=== PATIENT | female | born 1975 | race Hispanic/Latino ===

== ENCOUNTER → 2017-05-14 | Outpatient (CLI) | payer OTHER | LOC: MAMMO 15:04 | PROVIDERS: ATTEND Obstetrics & Gynecology | DX: Z12.31 Encounter for screening mammogram for malignant neoplasm of breast (principal) | CPT/HCPCS: 77067 ==

== ENCOUNTER → 2017-06-06 | Outpatient (CLI) | payer OTHER ==
--- NOTE | 2017-06-06 16:32 | Diagnostic Imaging Report ---
#[id number] - MGDXRT #UNILATERAL RIGHT DIGITAL DIAGNOSTIC MAMMOGRAM WITH SPOT COMPRESSION: 06/06/2017 Comparison is made to exam dated: 05/14/2017 mammogram - [facility]. Current study contains 4 films. The tissue of the right breast is heterogeneously dense. This may lower the sensitivity of mammography. There is a 2.8 cm mass with a spiculated margin and fine calcifications in the right breast at 11 o'clock posterior depth. There also is a 1.9 cm mass with a spiculated margin and fine calcifications in the right breast at 11 o'clock middle depth. A prominent lymph node is partially visualized. No other significant masses or calcifications are seen in the breast. IMPRESSION: HIGHLY SUGGESTIVE OF MALIGNANCY The mass in the right breast at 11 o'clock posterior depth is highly suggestive of malignancy. A biopsy based on clinical assessment is recommended. The 1.9 cm mass in the right breast at 11 o'clock middle depth is highly suggestive of malignancy. A biopsy based on clinical assessment is recommended. A phone call was made to the physician's office but a message was not able to be left. Gustavo Mcconnell Jr., D.O. cw/:06/06/2017 15:42:40 Communications And Signals Supervisor: Adrianna ARIZMENDI)(Luis), [facility] letter sent: Biopsy Required Mammogram BI-RADS: 5 Highly suggestive of malignancy
--- NOTE | 2017-06-06 16:32 | Diagnostic Imaging Report ---
#[id number] - USBRECOMRT ULTRASOUND OF THE RIGHT BREAST : 06/06/2017 Comparison is made to exams dated: 06/06/2017 mammogram and 05/14/2017 mammogram - [facility] [place]. Color flow and real-time ultrasound were performed on the entire right breast with scanning in all four quadrants, retroareolar region and the right axilla. -At the 11 o'clock position 9 cm from the nipple is a shadowing mass with calcifications and indistinct margins measuring 2 x 2 x 2.1 cm. This corresponds with the large posterior mass noted on the mammogram. -At the 11 o'clock position 5 cm from the nipple is a shadowing mass with calcifications measuring 1.2 x 1.3 x 1.4 cm. This mass corresponds to the more anterior mass on the mammogram. -At the 10 o'clock position there is an intramammary node measuring 1.5 cm. -An enlarged node in the right axilla measures 2.8 x 1.5 cm. IMPRESSION: HIGHLY SUGGESTIVE OF MALIGNANCY There are two large shadowing masses in the 11 o'clock position that are highly suspicious to represent cancer. Biopsy is recommended. Intramammary node and right axillary node present. Findings discussed with the patient and she is desiring of a mastectomy. Office was closed and no message able to be left. Gustavo Mcconnell Jr., D.O. cw/:06/06/2017 15:54:19 Access Tech: Adrianna ARIZMENDI)(Luis), [facility] [place] letter sent: Biopsy Required Ultrasound BI-RADS: 5 Highly suggestive of malignancy
== END ==
LOC: MAMMO 11:54
PROVIDERS: ATTEND Obstetrics & Gynecology
DX: R92.2 Inconclusive mammogram (principal)